=== PATIENT | male | born 1995 | race African-American/Black ===

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

== ENCOUNTER 2017-05-22 19:42 | Emergency (ER) | payer OTHER ==
[2017-05-22] MEDS: LIDO:MAALOX:DONNATAL 1:1:1 15 ML SINGLE DOSE SWSW (20:04)
== END 2017-05-22 21:37 | disposition home or self-care (01) ==
LOC: ER 19:42
DX: R10.9 Unspecified abdominal pain (principal); R07.89 Other chest pain; K21.9 Gastro-esophageal reflux disease without esophagitis
CPT/HCPCS: 74022; 93005; 99284